=== PATIENT | female | born 1960 | race American Indian/Alaskan Native ===

== ENCOUNTER 2018-02-01 08:47 | Outpatient (CLI) | payer OTHER ==
--- NOTE | 2018-02-01 15:51 | Mammography Report ---
BILATERAL DIGITAL SCREENING MAMMOGRAM with CAD : 02/01/18 08:47:00 CLINICAL: Routine screening. COMPARISON:03/18/14 FINDINGS: The breasts are heterogeneously dense, which may obscure small masses.An oval circumscribed 1.6 cm right axillary mass correlates with a known right axillary sebaceous cyst. No other mass, architectural distortion or suspicious calcifications. IMPRESSION: No mammographic evidence of malignancy. BI-RADS CATEGORY: 2 -- Benign RECOMMENDATION: Routine mammographic screening in one year. COMMENT: Patient follow-up letters are generated by our [employer] application.
== END 2018-02-01 08:48 | disposition home or self-care (01) ==
LOC: MAMMO 08:47
PROVIDERS: ATTEND Family Medicine
DX: Z12.31 Encounter for screening mammogram for malignant neoplasm of breast (principal); I10 Essential (primary) hypertension; M19.90 Unspecified osteoarthritis, unspecified site
CPT/HCPCS: 77067

== ENCOUNTER 2018-11-28 12:25 | Outpatient (CLI) | payer OTHER ==
--- NOTE | 2018-11-28 14:38 | XRay Report ---
SACRUM and COCCYX HISTORY: Pain. COMPARISON: None. TECHNIQUE: 2 views of the sacrum and coccyx were obtained. FINDINGS: Bones: No fracture or dislocation. Joint spaces: Maintained. Bilateral SI joint sclerosis with no erosions. Soft tissues: No significant abnormality. Additional findings: Mild degenerative disc disease at L3-4 and L4-5 with anterior osteophytes. Lower lumbar facet joint arthropathy. IMPRESSION: 1. Bilateral sacroiliitis with no erosions. 2. Lower lumbar degenerative disc disease and multilevel lower lumbar facet joint arthropathy. Signer Name: Nba Traylor MD Signed: 11/28/2018 2:33 PM Workstation Name: [id number]
--- NOTE | 2018-11-28 14:41 | XRay Report ---
LUMBOSACRAL SPINE, 4 VIEWS INDICATION: LOWER BACK PAIN. COMPARISON: None. IMPRESSION: Normal alignment. No evidence for fracture or suspicious bony lesion. Mild diffuse facet arthropathy is evident. Mild degenerative endplate spurring without significant loss of disc height is also demonstrated throughout the lumbar region. The oblique images demonstrate no evidence for par s defect or high-grade neural foraminal narrowing. No acute osseous or soft tissue abnormality. Signer Name: Hernan Tabares Jr, MD Signed: 11/28/2018 2:37 PM Workstation Name: [id number]
== END 2018-11-28 12:26 | disposition home or self-care (01) ==
LOC: XRAY 12:25
PROVIDERS: ATTEND Family Medicine
DX: M46.06 Spinal enthesopathy, lumbar region (principal); M51.36 Other intervertebral disc degeneration, lumbar region; M46.1 Sacroiliitis, not elsewhere classified; E78.00 Pure hypercholesterolemia, unspecified; I10 Essential (primary) hypertension; E11.9 Type 2 diabetes mellitus without complications; Z90.710 Acquired absence of both cervix and uterus
CPT/HCPCS: 72110; 72220

== ENCOUNTER 2020-03-11 03:49 | Emergency (ER) | payer OTHER | END 2020-03-11 05:21 | disposition left against medical advice (07) | LOC: ED 03:49 | DX: R05 Cough (principal); R51.9 Headache, unspecified; Z53.21 Procedure and treatment not carried out due to patient leaving prior to being seen by health care provider ==